=== PATIENT | male | born 1945 | race Caucasian/White ===

== ENCOUNTER 2018-07-13 17:50 | Emergency (ER) | payer MEDICARE, OTHER ==
[~2018-07-13] VITALS: Ht 175.3 cm; Wt 88.5 kg
[~2018-07-13 17:50] MED LIST: AMLO10 PO; ASPI81EC PO; DOXA4 PO; ETOD400 PO; MECL25 PO; OLME20 PO; OMEP20ER PO; [UNRECOGNIZED DRUG - OTHER]
== END 2018-07-13 18:42 | disposition home or self-care (01) ==
LOC: ER 17:50
DX: J20.9 Acute bronchitis, unspecified (principal); Z79.899 Other long term (current) drug therapy; Z79.82 Long term (current) use of aspirin
CPT/HCPCS: 71046; 99283-25

== ENCOUNTER 2018-08-01 08:28 | Day surgery (SDC) | payer MEDICARE, OTHER ==
[~2018-08-01] VITALS: Ht 175.3 cm; Wt 91.5 kg
[~2018-08-01 08:28] MED LIST changes: +BISA5EC PO; +Benicar40 MG PO; +HYDCHL25 PO; +LO-DOSE ASPIRIN81 MG PO; +METF500C PO; +METO10 PO; +POTCHL10ER PO; +Prilosec Otc20 MG PO
[2018-08-01] MEDS ORDERED: LOSA50 PO (09:41)
[2018-08-01] MEDS ORDERED: ATOR10 PO (09:42)
== END 2018-08-01 10:45 | disposition home or self-care (01) ==
LOC: ORSCSDS 08:28
PROVIDERS: Ophthalmology
PROC: 08RJ3JZ Replacement of Right Lens with Synthetic Substitute, Percutaneous Approach (ICD-10-PCS; principal; 2018-08-01 10:00)
DX: H25.11 Age-related nuclear cataract, right eye (principal); I10 Essential (primary) hypertension; G47.33 Obstructive sleep apnea (adult) (pediatric); R73.03 Prediabetes; Z79.899 Other long term (current) drug therapy
CPT/HCPCS: 82947; J2001; J2250; J3010; J3301; J7120; V2632

== ENCOUNTER 2018-09-05 06:33 | Day surgery (SDC) | payer MEDICARE, OTHER ==
[~2018-09-05] VITALS: Ht 175.3 cm; Wt 92.3 kg
[~2018-09-05 06:33] MED LIST changes: +ATOR10 PO; +LOSA50 PO; +Micro-K10 MEQ PO
== END 2018-09-05 08:41 | disposition home or self-care (01) ==
LOC: ORSCSDS 06:33
PROVIDERS: Ophthalmology
PROC: 08RK3JZ Replacement of Left Lens with Synthetic Substitute, Percutaneous Approach (ICD-10-PCS; principal; 2018-09-05 08:00)
DX: H25.12 Age-related nuclear cataract, left eye (principal); I10 Essential (primary) hypertension; G47.33 Obstructive sleep apnea (adult) (pediatric); R73.03 Prediabetes; Z79.899 Other long term (current) drug therapy
CPT/HCPCS: 82947; J2001; J2250; J3010; J3301; V2632

== ENCOUNTER → 2019-04-03 | Outpatient (CLI) | payer MEDICARE, OTHER | END | disposition home or self-care (01) | LOC: LAB SHORT 09:22 → PLD 09:22 | DX: D48.5 Neoplasm of uncertain behavior of skin (principal) | CPT/HCPCS: 88305 ==

== ENCOUNTER → 2020-04-13 | Outpatient (CLI) | payer MEDICARE, OTHER | END | disposition home or self-care (01) | LOC: PLD 14:45 → LAB SHORT 14:45 | DX: D22.5 Melanocytic nevi of trunk (principal) | CPT/HCPCS: 88305 ==

== ENCOUNTER → 2021-04-13 | Outpatient (CLI) | payer MEDICARE, OTHER | LOC: LAB 15:23 → LAB SHORT 15:23 | DX: D03.21 Melanoma in situ of right ear and external auricular canal (principal) | CPT/HCPCS: 88305 ==

== ENCOUNTER → 2025-03-12 | Outpatient (CLI) | payer MEDICARE, OTHER | LOC: LAB 17:08 | DX: R00.2 Palpitations (principal) ==